=== PATIENT | female | born 1950 | race Caucasian/White ===

== ENCOUNTER → 2022-11-29 | Outpatient (CLI) | payer MEDICARE, SELFPAY ==
--- NOTE | 2022-11-29 13:41 | ECHOCS_ITS ---
Reason For Study: PVC Procedure This was a 2D Doppler, Color Flow transthoracic echocardiogram. The study was technically difficult. Contrast injection was performed. Exam performed in department. Left Ventricle Normal LV size. Left ventricular systolic function is normal. The estimated ejection fraction is 65 %. Stage 1 diastolic dysfunction. No regional wall motion abnormalities noted. Right Ventricle Normal RV size. Normal systolic function. Atria Normal left atrium. Normal right atrium. Bubble contrast study negative for right to left interatrial shunt. Mitral Valve Normal mitral valve. Mild (1+) eccentric mitral valve insufficiency. Tricuspid Valve Normal tricuspid valve. Mild (1+) tricuspid valve insufficiency. Pulmonary artery systolic pressure is 37 mmHg. Aortic Valve Normal aortic valve. Trisinus/trileaflet aortic valve. Pulmonic Valve Normal pulmonic valve. Great Vessels Normal aortic root. The pulmonary artery is normal size. Normal inferior vena cava. Pericardium/Pleural No pericardial effusion. Medication 20 gauge I.V. with prn adaptor inserted into right arm. Diluted definity 4.5ml given slow IV push to enhance endocardial definition. Performed a rapid injection of agitated mix of 9 cc saline and 1cc air to assess for atrial septal defect. MMode/2D Measurements & Calculations LVIDd: 5.2 cm IVSd: 0.88 cm LA dimension: 4.0 cm LVIDs: 3.7 cm LVPWd: 1.0 cm RVDd: 3.8 cm FS: 28.9 % LAV(MOD-bp): 53.7 ml LVAd ap4: 35.5 cm2 SV(MOD-sp4): 65.0 ml LAV(MOD-bp) Indexed: 27.4 ml/m2 LVLd ap4: 8.4 cm LAV(MOD-sp2): 43.6 ml EDV(MOD-sp4): 122.7 ml LAV(MOD-sp4): 59.5 ml EDV(sp4-el): 127.2 ml LVAs ap4: 21.5 cm2 LVLs ap4: 6.7 cm ESV(MOD-sp4): 57.7 ml ESV(sp4-el): 58.6 ml EF(MOD-sp4): 53.0 % EF(sp4-el): 54.0 % SV(sp4-el): 68.7 ml LA A4 area: 21.3 cm2 RA A4 area: 20.8 cm2 Time Measurements MV dec time: 0.19 sec Doppler Measurements & Calculations MV E max robi: 71.5 cm/sec Lat Peak E' Robi: 9.5 cm/sec Med Peak E' Robi: 9.1 cm/sec MV A max robi: 97.7 cm/sec E/E' lat: 7.5 E/E' med: 7.9 MV E/A: 0.73 MV V2 max: 93.4 cm/sec MV P1/2t max robi: 94.1 cm/sec Ao V2 max: 120.5 cm/sec MV max P.5 mmHg MV P1/2t: 76.0 msec Ao max P.8 mmHg MV V2 mean: 56.5 cm/sec Ao V2 mean: 84.8 cm/sec MV mean P.5 mmHg MV dec slope: 362.3 cm/sec2 Ao mean P.3 mmHg MV V2 VTI: 26.6 cm MVA(P1/2t): 2.9 cm2 Ao V2 VTI: 30.3 cm AV (velocity ratio): 0.70 LV V1 max: 77.9 cm/sec MR max robi: 529.1 cm/sec PA V2 max: 110.5 cm/sec LV V1 max P.4 mmHg MR max P.0 mmHg PA V2 mean: 74.1 cm/sec LV V1 mean P.4 mmHg MR mean robi: 416.0 cm/sec LV V1 mean: 54.0 cm/sec MR mean P.3 mmHg LV V1 VTI: 21.1 cm MR VTI: 204.2 cm TR max robi: 289.6 cm/sec TR max P.5 mmHg ECHO/Echo Complete W/ Contrast Interpretation Summary Normal LV size. Left ventricular systolic function is normal. The estimated ejection fraction is 65 %. Stage 1 diastolic dysfunction. Contrast injection was performed. Ordering Physician: JABIER ROPER Referring Physician: JABIER ROPER Performed By: Huber Peña RCS
== END | disposition home or self-care (01) ==
DX: I49.3 Ventricular premature depolarization (principal)
CPT/HCPCS: 93306; Q9957; A4216; C8929